=== PATIENT | female | born 1955 | race Caucasian/White ===

== ENCOUNTER 2017-01-23 17:44 | Emergency (ER) | payer OTHER, MEDICAID ==
[~2017-01-23] VITALS: Ht 162.6 cm; Wt 79.4 kg
[2017-01-23 19:34] VITALS: BP 112/67
== END 2017-01-23 19:59 | disposition home or self-care (01) ==
LOC: ER 17:51
DX: S62.306A Unspecified fracture of fifth metacarpal bone, right hand, initial encounter for closed fracture (principal); E11.9 Type 2 diabetes mellitus without complications; K21.9 Gastro-esophageal reflux disease without esophagitis; E78.5 Hyperlipidemia, unspecified; I10 Essential (primary) hypertension; Z88.6 Allergy status to analgesic agent; W01.0XXA Fall on same level from slipping, tripping and stumbling without subsequent striking against object, initial encounter; Y93.89 Activity, other specified; Y99.8 Other external cause status; Y92.89 Other specified places as the place of occurrence of the external cause
CPT/HCPCS: 29125; 73130

== ENCOUNTER 2019-02-03 10:33 | Emergency (ER) | payer OTHER, MEDICAID ==
[~2019-02-03] VITALS: Ht 162.6 cm; Wt 86.2 kg
[2019-02-03] MEDS ORDERED: SODIUM CHLORIDE 0.9% 500 ML IV ONE ×2 (10:55→13:06)
[2019-02-03] MEDS ORDERED: InsuLIN REG 1unit/0.01ml Soln (100units/ml) SC ONE (11:15)
[2019-02-03] MEDS ORDERED: ONDANSETRON HCL 4 MG/2 ML VIAL IV ONE (11:15)
[2019-02-03 12:08] LABS: Basophils # (auto) 0 uL; Basophils % (auto) 0.5 % (0.0-2.0); Eosinophils # (auto) 0.1 uL; Eosinophils % (auto) 1.1 % (0.0-7.0); Hematocrit 38.1 % (36.0-46.0); Hemoglobin 12.7 g/dL (12.2-16.2); Lymphocytes # (auto) 1.8 uL; Lymphocytes % (auto) 31.8 % (10.0-50.0); Mean Corpuscular Hemoglobin 28.7 pg (28.0-32.0); Mean Corpuscular Hgb Conc. 33.4 g/dL (32.0-36.0); Mean Corpuscular Volume 85.9 fL (80.0-100.0); Monocytes # (auto) 0.4 uL; Monocytes % (auto) 7.1 % (0.0-12.0); Neutrophils # (auto) 3.3 uL; Neutrophils % (auto) 59.5 % (37.0-80.0); Nucleated Red Blood Cells % 0.1 %; Platelet Count (auto) 203 10^3/uL (140-450); Red Blood Cells 4.44 10^6/uL (4.0-5.20); Red Cell Distribution Width 13.4 % (11.8-14.3); White Blood Cell 5.6 10^3/uL (4.4-10.8)
[2019-02-03 12:11] LABS: Anion Gap 8 (5-15); Blood Urea Nitrogen 31 mg/dL (7-18); Calcium 9.5 mg/dL (8.5-10.1); Carbon Dioxide 26 mmol/L (21-32); Chloride 104 mmol/L (98-107); Glucose 242 mg/dL (74-106); Potassium 3.9 mmol/L (3.5-5.1); Sodium 138 mmol/L (136-145)
[2019-02-03 12:16] LABS: BUN/Creatinine Ratio 33.7; GFR African American 79 mL/min; GFR Non-African American 65 mL/min
[2019-02-03 12:23] LABS: Partial Thromboplastin Time 23.5 sec (23.64-32.05)
[2019-02-03 12:55] LABS: Urine Bacteria MOD /hpf (None Seen); Urine Blood Negative /uL (Negative); Urine Mucus FEW (None Seen); Urine WBC 9 /hpf (0 - 5); Urine WBC Clumps PRESENT /hpf (None Seen)
[2019-02-03] MEDS ORDERED: cefTRIAXone 1GM/50ML D5W 50 ML IV ONE (13:15)
[2019-02-03 14:37] VITALS: BP 154/87
== END 2019-02-03 14:39 | disposition home or self-care (01) ==
LOC: ER 10:43
DX: E86.0 Dehydration (principal); N39.0 Urinary tract infection, site not specified; M19.90 Unspecified osteoarthritis, unspecified site; E11.9 Type 2 diabetes mellitus without complications; K21.9 Gastro-esophageal reflux disease without esophagitis; E78.5 Hyperlipidemia, unspecified; I10 Essential (primary) hypertension; Z90.49 Acquired absence of other specified parts of digestive tract; Z90.710 Acquired absence of both cervix and uterus
CPT/HCPCS: 36415; 70450; 80048; 81001; 82962; 83735; 84484; 85025; 85610; 85730; 93005; 94761; 96361; 96365; 96375; 99284; J0696; J2405; J7040

== ENCOUNTER 2019-02-13 14:58 | Emergency (ER) | payer OTHER, MEDICAID ==
[~2019-02-13] VITALS: Ht 162.6 cm; Wt 86.2 kg
[2019-02-13 16:00] LABS: Basophils # (auto) 0 uL; Basophils % (auto) 0.6 % (0.0-2.0); Eosinophils # (auto) 0 uL; Eosinophils % (auto) 0.4 % (0.0-7.0); Hematocrit 38.8 % (36.0-46.0); Hemoglobin 13.1 g/dL (12.2-16.2); Lymphocytes # (auto) 1.8 uL; Lymphocytes % (auto) 23.8 % (10.0-50.0); Mean Corpuscular Hemoglobin 28.9 pg (28.0-32.0); Mean Corpuscular Hgb Conc. 33.7 g/dL (32.0-36.0); Mean Corpuscular Volume 85.7 fL (80.0-100.0); Monocytes # (auto) 0.4 uL; Monocytes % (auto) 5.3 % (0.0-12.0); Neutrophils # (auto) 5.3 uL; Neutrophils % (auto) 69.9 % (37.0-80.0); Nucleated Red Blood Cells % 0.1 %; Platelet Count (auto) 204 10^3/uL (140-450); Red Blood Cells 4.53 10^6/uL (4.0-5.20); Red Cell Distribution Width 13.3 % (11.8-14.3); White Blood Cell 7.6 10^3/uL (4.4-10.8)
[2019-02-13 16:13] LABS: Albumin 3.9 g/dL (3.4-5.0); Anion Gap 12 (5-15); Blood Urea Nitrogen 29 mg/dL (7-18); Calcium 9.8 mg/dL (8.5-10.1); Carbon Dioxide 22 mmol/L (21-32); Chloride 105 mmol/L (98-107); Glucose 110 mg/dL (74-106); Potassium 3.7 mmol/L (3.5-5.1); Sodium 139 mmol/L (136-145)
[2019-02-13 16:19] LABS: Alanine Aminotransferase 34 U/L (13-56); Alkaline Phosphatase 44 U/L (45-117); Aspartate Aminotransferase 27 U/L (15-37); BUN/Creatinine Ratio 26.6; Bilirubin, Total 0.3 mg/dL (0.2-1.0); GFR African American 65 mL/min; GFR Non-African American 54 mL/min; Total Protein 6.9 g/dL (6.4-8.2)
[2019-02-13] MEDS ORDERED: MECLIZINE HCL 25 MG TAB PO ONE (17:00)
[2019-02-13 18:06] VITALS: BP 131/71
[2019-02-13 18:40] LABS: Urine Bacteria NONE SEEN /hpf (None Seen); Urine Blood Negative /uL (Negative); Urine Specific Gravity 1.013 (1.001-1.035); Urine WBC 1 /hpf (0 - 5)
== END 2019-02-13 18:09 | disposition home or self-care (01) ==
LOC: ER 15:04
DX: H81.10 Benign paroxysmal vertigo, unspecified ear (principal); E11.9 Type 2 diabetes mellitus without complications; K21.9 Gastro-esophageal reflux disease without esophagitis; E78.5 Hyperlipidemia, unspecified; I10 Essential (primary) hypertension; Z90.49 Acquired absence of other specified parts of digestive tract; Z90.710 Acquired absence of both cervix and uterus
CPT/HCPCS: 36415; 80053; 81001; 84484; 85025; 93005; 94761; 99284; J8597

== ENCOUNTER 2023-08-21 19:42 | Emergency (ER) | payer OTHER, MEDICAID ==
[~2023-08-21] VITALS: Ht 162.6 cm; Wt 84.1 kg
[2023-08-21 21:17] VITALS: BP 171/73; PULSE 61; RESP 18; O2SAT 95
[2023-08-21] MEDS ORDERED: IBUP-1454 PO (23:44)
[2023-08-21] MEDS ORDERED: ACET500T58 PO (23:44)
== END 2023-08-22 02:34 | disposition home or self-care (01) ==
LOC: ER 19:42
DX: S63.501A Unspecified sprain of right wrist, initial encounter (principal); S50.11XA Contusion of right forearm, initial encounter; E11.9 Type 2 diabetes mellitus without complications; K21.9 Gastro-esophageal reflux disease without esophagitis; E78.5 Hyperlipidemia, unspecified; I10 Essential (primary) hypertension; Z90.49 Acquired absence of other specified parts of digestive tract; Z90.710 Acquired absence of both cervix and uterus; Z88.6 Allergy status to analgesic agent; W18.09XA Striking against other object with subsequent fall, initial encounter; Y93.89 Activity, other specified; Y92.89 Other specified places as the place of occurrence of the external cause; Y99.8 Other external cause status
CPT/HCPCS: 73090